=== PATIENT | male | born 1960 | race Two or more races ===

== ENCOUNTER 2022-09-01 15:53 | Emergency (ER) | payer BC ==
[~2022-09-01] VITALS: Ht 175.3 cm; Wt 81.6 kg
[2022-09-01] MEDS ORDERED: ROSUVASTATIN CA20 MG PO (17:29)
[2022-09-01] MEDS ORDERED: BENICAR5 MG PO (17:29)
[2022-09-01] MEDS ORDERED: INVELTYS2.8 ML OP (17:29)
[2022-09-01] MEDS ORDERED: COMBIGAN EYE DRO5 ML OP (17:30)
== END 2022-09-01 20:19 | disposition home or self-care (01) ==
LOC: ER 15:53
DX: R00.2 Palpitations (principal)